=== PATIENT | female | born 1990 | race Caucasian/White ===

== ENCOUNTER 2017-06-04 11:42 | Inpatient (IN) | payer OTHER ==
[~2017-06-04] VITALS: Ht 160 cm; Wt 90.3 kg
[2017-06-04 12:50] LABS: ABSOLUTE BASOPHIL COUNT 0 /CUMM (0.0-0.2); ABSOLUTE EOSINOPHIL COUNT 0.1 /CUMM (0.0-0.7); ABSOLUTE GRANULOCYTE CT 7.2 /CUMM (1.4-6.5); ABSOLUTE LYMPH COUNT 2.5 /CUMM (1.2-3.4); ABSOLUTE MONOCYTE COUNT 0.7 /CUMM (0.10-0.60); BASOPHIL % 0.3 % (0.0-2.0); EOSINOPHIL % 0.9 % (0-5); GRANULOCYTE % 68.3 % (42.2-75.2); HEMATOCRIT 41.6 % (37-47); MEAN CORPUSCULAR HGB 26.4 PG (27.0-31.0); MEAN CORPUSCULAR VOLUME 79.9 FL (81.0-99.0); MEAN PLATELET VOLUME 9.6 FL (7.4-10.4); PLATELET COUNT 146 /CUMM (130-400); RBC DISTRIBUTION WIDTH 15.5 % (11.5-14.5); WHITE BLOOD CELL COUNT 10.5 /CUMM (4.8-10.8)
[2017-06-04] MEDS ORDERED: PRENATABS RX T1 EACH PO (12:52)
[2017-06-04] MEDS ORDERED: FIORINAL 50-321 EACH PO (12:53)
--- NOTE | 2017-06-04 19:01 | History & Physical ---
General Information and HPI MD Statement: I have seen and personally examined ATYLOR MARCIAL and documented this H&P. The patient is a 27 year old female at [41] weeks and [1] days gestation who presented with a chief complaint of [rupture of membranes]. Source of Information: patient Exam Limitations: no limitations History of Present Illness: Patient reported rupture of membranes the morning of 06-04-17. Clear fluid, no contractions, good movement, no vag bleeding. Patient well-known to our obstetric practice. Has been seen by us since 22 wks at which point she had transferred to our office. Former smoker, history of anxiety not on medications, history of headaches taking Fioricet prn. Patient currently doing well. Allergies/Medications Allergies: Coded Allergies: No Known Allergies (06/04/17) Home Med list Fiorinal (Fiorinal 50-325-40 MG Capsule) 50 MG-325 MG-40 MG CAPSULE 1 CAPL PO DAILY PRN HEADACHES (Reported) Vit #76/Iron,Carb/FA (Prenatabs Rx Tablet) 29 MG IRON-1 MG TABLET 1 TAB PO DAILY SUPPLEMENT (Reported) Compliance With Home Meds: GOOD Past History roller skater History : 1 Para: 0 Last Menstrual Period: 08-20-2016 Estimated Delivery Date: 05-27-17 Past roller skater History: none Medical History Blood Transfusion Hx: No Neurological: headache (taking fioricet prn) EENT: NONE Cardiovascular: NONE Respiratory: NONE Gastrointestinal: NONE Hepatic: NONE Renal: NONE Musculoskeletal: NONE Psychiatric: anxiety (not on meds) Endocrine: NONE Blood Disorders: NONE Cancer(s): NONE Surgical History Pertinent Surgical History: none Past Family/Social History Psychosocial History Primary Language: Argentine Smoking Status: Former Smoker ETOH Use: denies use Illicit Drug Use: denies illicit drug use Review of Systems Review of Systems Constitutional: Reports: no symptoms. Denies: chills, fever. EENTM: Reports: no symptoms. Denies: blurred vision, double vision. Cardiovascular: Reports: no symptoms. Denies: chest pain. Respiratory: Denies: cough, short of breath. Neurological/Psychological: Denies: anxiety, depressed, headache. Exam & Diagnostic Data Last 24 Hrs of Vital Signs/I&O Intake & Output 06/04 1600 06/04 0800 06/04 0000 Intake Total Output Total Balance Patient 199 lb Weight Obstetric Exam Wgt Gained During : 62 Pelvimetry: adequate Dilation (cm): 1 Effacement (%): 50 Station: -2 Membranes: SROM Fluid: clear Fundal Height (cm): 40 Multiple Gestation? No Contractions: q5-6 min Infant #1 - FHR Baseline: 142 Category: 1 Estimated Weight: 3800 Presentation: vertex Patient for Induction? Yes Stiles Score Stiles Score Response Value Cervix Position: posterior 0 Cervix Consistency: medium 1 Cervix Effacement: 30-50% 1 Cervix Dilation: 1-2 cm 1 Cervix Station: -2 1 Total 4 Physical Exam General Appearance Alert, Oriented X3, Cooperative Cardiovascular Regular Rate, Normal S1, Normal S2, No Murmurs Lungs Clear to Auscultation Extremities No Edema Labs Blood Type & Rh: O+ Antibody Screen: negative Hct/Hgb & Platelets #1: 36.6/12.1 Hct/Hgb & Platelets #2: 34.5/10.4 Rubella: not immune VDRL #1: neg VDRL #2: neg HbsAg: neg HIV #1: neg HIV #2 neg 1 Hr P Group B Strep: neg Initial Ultrasound: 10-20-16 Anatomy Ultrasound: 02-17-17 Ultrasound for EFW: 05-23-17 Genetic Testing: Nl NT, CF neg, MSAFP neg, Counsyl prelude neg, Hgb electrophoresis AA Last 24 Hrs of Labs/Prince: Laboratory Tests 06/04/17 1240: RPR Titer/FTA Pending 06/04/17 1240: CBC w Diff NO MAN DIFF REQ, RBC 5.20, MCV 79.9 L, MCH 26.4 L, MCHC 33.0, RDW 15.5 H, MPV 9.6, Gran % 68.3, Lymphocytes % 24.0, Monocytes % 6.5, Eosinophils % 0.9, Basophils % 0.3, Absolute Granulocytes 7.2 H, Absolute Lymphocytes 2.5, Absolute Monocytes 0.7 H, Absolute Eosinophils 0.1, Absolute Basophils 0, HIV 1 &2 Ab Western Blot NONREACTIVE 06/04/17 1200: Membrane Rupture POSITIVE, Urinalysis LIGHT H, Urine Color YEL, Urine Clarity HAZY H, Urine pH 6.5, Ur Specific [place] 1.020, Urine Protein NEG, Urine Ketones TRACE H, Urine Nitrite NEG, Urine Bilirubin NEG, Urine Urobilinogen 0.2, Ur Leukocyte Esterase SMALL H, Ur Microscopic SEDIMENT EXAMINED, Urine RBC 3-5, Urine WBC 5-10 H, Ur Epithelial Cells FEW, Urine Bacteria FEW H, Urine Mucus RARE, Urine Hemoglobin TRACE-INTACT, Urine Glucose NEG Assessment/Plan Assessment/Plan: 27 year old female with SROM @ 41w1d, postdates, non-inducible cervix, no labor after 8 hours, plan cervidil ripening x12 hours and pitocin to follow. NST reactive, good FM. As Ranked By This Provider Problem List: 1. 2. Spontaneous rupture of membranes Core Measures Venous Thromboembolism VTE Risk Factors / No Mechanical VTE Prophylaxis d/t LowRisk-No Interven Req'd No VTE Pharm Prophylaxis d/t LowRisk-No Interven Req'd Attending MD Review Statement Attending Statement Attending MD Statement: examined this patient, discuss w/resident/PA/[employer], discussed with family, discussed w/nursing
[2017-06-05 04:18] VITALS: BP 105/65
--- NOTE | 2017-06-05 07:11 | PN- OBGYN ---
Surgical Brief Attending Note Brief Attending Note: pt reqested epidural 0100 which was placed, the uc's spaced out so low dose pitocin was stared. Pt developed a temp 101.3 which was treated with Penacillin at 0530, tylenol at 0545 and fluid bolus. FHR became tachycardic with with moderate variability and accelerations. Pitocin off because of inadequate epidural coverage. Pt fully dilated at 0700 and will start pushing temp now 100.3. plan expectant management allow to push with epidural on.
--- NOTE | 2017-06-05 08:33 | Labor & Delivery Summary ---
Delivery Summary Vaginal Delivery: Vaginal: vertex Episiotomy/Lacerations: Type: 2ND DEGREE Repair: 3.0 POLYSORB Anesthesia: 10 CC NESICAINE Placenta: Placenta: spontanteous, normal, 3 vessel Anesthesia: block (EPIDURAL) Baby's Weight: 8LB 7OZ Apgars - 1 Min: 9 Apgars - 5 Min: 9 Additional Comments: TMAX 101, TX WITH PCN AND TYLENOL. PUSHED X1 HOUR, OCCIPUT ANTERIOR, CLEAR FLUID.
[2017-06-06 08:59] LABS: ABSOLUTE BASOPHIL COUNT 0 /CUMM (0.0-0.2); ABSOLUTE EOSINOPHIL COUNT 0.2 /CUMM (0.0-0.7); ABSOLUTE MONOCYTE COUNT 1.2 /CUMM (0.10-0.60); BASOPHIL % 0.3 % (0.0-2.0); EOSINOPHIL % 1.4 % (0-5); MEAN PLATELET VOLUME 10.3 FL (7.4-10.4); PLATELET COUNT 112 /CUMM (130-400)
[2017-06-06 09:05] LABS: ABSOLUTE GRANULOCYTE CT 11.4 /CUMM (1.4-6.5); ABSOLUTE LYMPH COUNT 3.5 /CUMM (1.2-3.4); GRANULOCYTE % 69.4 % (42.2-75.2); MEAN CORPUSCULAR HGB 26.6 PG (27.0-31.0); MEAN CORPUSCULAR HGB CONC 33.2 G/DL (33.0-37.0); MEAN CORPUSCULAR VOLUME 80.2 FL (81.0-99.0); RBC DISTRIBUTION WIDTH 15.4 % (11.5-14.5)
[2017-06-06 09:18] LABS: HEMATOCRIT 27.7 % (37-47); RED BLOOD CELL CT 3.45 /CUMM (4.20-5.40); WHITE BLOOD CELL COUNT 16.4 /CUMM (4.8-10.8)
[2017-06-07] MEDS ORDERED: IBUPROFEN800 M1 PO (10:22)
[2017-06-07] MEDS ORDERED: DOCUSATE SODIU100 M3 PO (10:22)
--- NOTE | 2017-06-07 10:29 | PN- Post Delivery/GYN ---
Subjective Subjective: FEELING WELL Review of Systems Constitutional: Reports: no symptoms. Denies: chills, fever. EENTM: Denies: blurred vision, double vision, visual changes. Cardiovascular: Reports: edema. Respiratory: Denies: cough, short of breath. Gastrointestinal: Denies: diarrhea, nausea, vomiting. Neurological/Psychological: Reports: ataxia. Denies: depressed. Objective Last 24 Hrs of Vital Signs/I&O vss Physical Exam General Appearance Alert, Oriented X3, Cooperative, No Acute Distress Cardiovascular Regular Rate Lungs Clear to Auscultation Abdomen Soft, fundus firm Pelvic (FEMALE) lochia serosanganous Current Medications: Current Medications Sig/Narda Start time Last Medication Dose Route Stop Time Status Admin Acetaminophen 650 MG Q4P PRN 06/05 844 AC PO Docusate Sodium 100 MG .STK-MED ONE 06/06 2309 DC PO 06/06 2310 Docusate Sodium 100 MG BID PRN 06/05 0745 AC 06/07 PO 0852 Hydroxyzine HCl 50 MG AT BEDTIME NEED.. 06/05 08 AC PO Ibuprofen 800 MG .STK-MED ONE 06/06 1652 DC PO 06/06 1653 Ibuprofen 800 MG .STK-MED ONE 06/06 1052 DC PO 06/06 1053 Ibuprofen 800 MG Q6P PRN 06/05 0745 AC 06/07 PO 0743 Magnesium Hydroxide 30 ML DAILY PRN 06/05 0845 AC PO Oxycodone/ 1 TAB Q3P PRN 06/05 0845 AC Acetaminophen PO Assessment/Plan Assessment/Plan ppd #2 vss afebrile plan d/c home f/u 2 weeks in office
== END 2017-06-07 11:05 | DRG 774 ==
LOC: CBCO 11:42 → GNO 12:23
PROVIDERS: Obstetrics & Gynecology
PROC: 0KQM0ZZ Repair Perineum Muscle, Open Approach (ICD-10-PCS; principal; 2017-06-05)
PROC: 10E0XZZ Delivery of Products of Conception, External Approach (ICD-10-PCS; principal; 2017-06-05)
DX: O70.1 Second degree perineal laceration during delivery (principal); O75.2 Pyrexia during labor, not elsewhere classified; Z37.0 Single live birth; Z3A.41 41 weeks gestation of pregnancy
CPT/HCPCS: 87070; 87075; 87205; GNOP; GNOS; 36415; 81001; 84112; 87086; 87389; J0131; J1200; J2270; J7120